=== PATIENT | male | born 1965 | race Caucasian/White ===

== ENCOUNTER 2020-10-25 19:42 | Inpatient (IN) | payer BC, SELFPAY ==
[2020-10-25] VITALS (16 sets, daily range): BP systolic 105–161; BP diastolic 58–91; PULSE 86–100; RESP 12–24; TEMP 36.4–36.7; O2SAT 89–94; BMI 29.8
--- NOTE | 2020-10-25 19:54 | XR_ITS ---
WS: [id number] PORTABLE CHEST HISTORY: sob COMPARISON: 09/08/2016 Lungs are clear and well expanded. No pleural effusion or pneumothorax. Cardiac size: Normal. Mediastinum/Aorta: Normal mediastinum. No osseous abnormality seen. XR/XR chest 1V portable [id number] IMPRESSION: Unremarkable portable chest.
--- NOTE | 2020-10-25 19:58 | ECG_ITS ---
[facility] Test Date: 2020-10-25 Pat Name: Jairon Taylor Department: Room: Gender: Male Inspector Government Property: : 1965 Requested By: Gissel Shirley Order Number: [id number] Key MD: Mani Davila M.D. Measurements Intervals [place] Rate: 94 P: 24 CA: 133 QRS: 15 QRSD: 113 T: 34 QT: 322 QTc: 405 Interpretive Statements SINUS RHYTHM MODERATE INTRAVENTRICULAR CONDUCTION DELAY [110+ ms QRS DURATION] NONSPECIFIC T-WAVE ABNORMALITY INTERPRETATION BASED ON A DEFAULT AGE OF 40 YEARS No previous ECG available for comparison Electronically Signed On 10-26-2020 22:24:27 DIGITAL ACCOUNT DIRECTOR by Mani Davila M.D. [email or web address]
--- NOTE | 2020-10-25 19:58 | W.ED.SOB ---
HPI - SOB/Dyspnea General: Chief Complaint: Shortness of Breath/Dyspnea Stated Complaint: trouble breathing Time Seen by Provider: 10/25/20 19:53 Source: patient Mode of arrival: ambulatory Limitations: no limitations History of Present Illness: HPI Narrative: 55-year-old male who has a long history of last day he has been having increasing shortness of breath and wheezing. He states he had little improvement with his vascular inhaler. He states he had no known sick contacts but was at a basketball game in [place] recently but he states he wore a mask. He denies any fever he has had a dry cough. He states he had chest pain as well that is a pressure type pain worse with his breathing. Denies any recent long trips. Denies any vomiting or diarrhea. MD elicited complaint: shortness of breath Associated symptoms: Reports chest pain; Deny abdominal pain, fever(s), nausea or vomiting Review of Systems Const: Denies: fever(s), chills, body aches or change in appetite Eyes: Denies: blurry vision or eye discomfort ENMT: Denies: throat pain or dental pain Card: Reports: chest pain Resp: Reports: dyspnea, non-productive cough and wheezing GI: Denies: abdominal pain, nausea, vomiting or diarrhea : Denies: dysuria Musc: Denies: neck pain or back pain Skin/Breast: Denies: rash Neuro: Denies: headache(s) Psych: Denies: depression Bob/Lymph: Denies: easy bruising All/Imm: Denies: urticaria Physical Exam Const: COMMON NORMALS: no acute distress, patient oriented x3 and healthy appearing HENMT: COMMON NORMALS: normocephalic and atraumatic HEAD & SCALP: normocephalic and atraumatic Eye: COMMON NORMALS: Equal, round and reactive pupils present and EOMs intact bilaterally PUPIL: Yes Equal, round and reactive pupils present Neck/C-Spine: COMMON NORMALS: full ROM and supple Chest: COMMONS NORMALS: normal inspection of the chest and normal palpation of entire chest wall Resp: COMMON NORMALS: No retractions and No use of accessory muscles EFFORT & INSPECTION: Yes tachypneic AUSCULTATION: wheezes Cardio: COMMON NORMALS: regular rate, regular rhythm and No murmurs present (Cardio) RATE: regular rate RHYTHM: regular rhythm GI: COMMON NORMALS: Normal to inspection, nondistended, normoactive bowel sounds present, Soft to palpation, non-tender and no masses PALPATION: Yes Soft to palpation Extremity: COMMON NORMALS: normal to inspection and full ROM Neuro: COMMON NORMALS: patient oriented x3, moves all extremities and no focal motor deficits Psych: COMMON NORMALS: mental status grossly normal, Normal thought process present and cooperative THOUGHT PROCESS: Normal thought process present Skin: COMMON NORMALS: no rashes or lesions noted and no wounds GENERAL SKIN EXAM: no rashes or lesions noted Course Vital Signs: Vital signs: Vital Signs Temperature 98.1 F 10/25/20 19:49 Pulse Rate 90 10/25/20 21:30 Respiratory Rate 14 10/25/20 21:30 Blood Pressure 111/77 10/25/20 21:30 Pulse Oximetry 92 10/25/20 21:30 MDM - SOB/Dyspnea MDM Narrative: Medical decision making narrative: Jairon presents here with asthma exacerbation. He continues to have wheezing and requiring oxygen even after multiple breathing treatments. He is currently on 2 L of oxygen. I spoke to the hospitalist will admit. Patient's Covid test is negative and his x-ray shows no signs of pneumonia. He has no signs of cardiac cause as his initial troponin was negative. Lab Data: Labs: Lab Results 10/25/20 10/25/20 10/25/20 Range/Units 20:00 20:08 20:08 WBC 13.7 H (4.0-10.0) 10^3/ uL RBC 5.24 (4.1-5.3) 10^6/u L Hgb 15.4 (11.7-16.6) g/dL Hct 46.7 (42.0-52.0) % MCV 89.1 (80-94) fL MCH 29.4 (28.0-34.0) pg MCHC 33.0 (30.0-36.0) g/dL RDW 11.9 L (12.1-15.1) % Plt Count 208 (130-400) 10^3/c mm MPV 9.4 (7.4-10.4) fL Neut % (Auto) 86.0 % Lymph % (Auto) 7.3 % [place] % (Auto) 4.9 % Eos % (Auto) 0.6 % Baso % (Auto) 0.9 % Neut # (Auto) 11.75 H (1.8-7.7) 10^3/u L Lymph # (Auto) 1.0 (0.8-4.8) 10^3/u L [place] # (Auto) 0.7 (0.2-0.9) 10^3/u L Eos # (Auto) 0.1 (0.0-0.8) 10^3/u L Baso # (Auto) 0.1 (0.0-0.1) 10^3/u L Nucleated RBC % (a uto) 0 % Nucleated RBCs # 0.0 /100WBC Sodium 137 (136-145) mmol/L Potassium 4.0 (3.5-5.1) mmol/L Chloride 100 (98-107) mmol/L Carbon Dioxide 25 (22-29) mmol/L Anion Gap 16.0 (5-19) BUN 19 (6-20) mg/dL Creatinine 0.9 (0.7-1.2) mg/dL GFR Calculation 87.3 L (90-130) mL/min Glucose 175 H (65-115) mg/dL Calculated Osmolal ity 291 (285-295) mOsm/k g Calcium 9.1 (8.5-10.5) mg/dL Total Bilirubin 0.3 (0.15-1.2) mg/dL AST 15 (0-40) U/L ALT 24 (0-41) U/L Alkaline Phosphata se 78 (40-130) IU/L Troponin T Baselin e (0-15) ng/L NT-Pro-B Natriuret Pep 71 (0-125) pg/mL Total Protein 7.3 (6.6-8.7) g/dL Albumin 4.2 (3.5-5.2) g/dL Globulin 3.1 (1.3-4.6) g/dL SARS-CoV-2 Ag (Rap id) Negative (Negative) 10/25/20 Range/Units 20:08 WBC (4.0-10.0) 10^3/ uL RBC (4.1-5.3) 10^6/u L Hgb (11.7-16.6) g/dL Hct (42.0-52.0) % MCV (80-94) fL MCH (28.0-34.0) pg MCHC (30.0-36.0) g/dL RDW (12.1-15.1) % Plt Count (130-400) 10^3/c mm MPV (7.4-10.4) fL Neut % (Auto) % Lymph % (Auto) % [place] % (Auto) % Eos % (Auto) % Baso % (Auto) % Neut # (Auto) (1.8-7.7) 10^3/u L Lymph # (Auto) (0.8-4.8) 10^3/u L [place] # (Auto) (0.2-0.9) 10^3/u L Eos # (Auto) (0.0-0.8) 10^3/u L Baso # (Auto) (0.0-0.1) 10^3/u L Nucleated RBC % (a uto) % Nucleated RBCs # /100WBC Sodium (136-145) mmol/L Potassium (3.5-5.1) mmol/L Chloride (98-107) mmol/L Carbon Dioxide (22-29) mmol/L Anion Gap (5-19) BUN (6-20) mg/dL Creatinine (0.7-1.2) mg/dL GFR Calculation (90-130) mL/min Glucose (65-115) mg/dL Calculated Osmolal ity (285-295) mOsm/k g Calcium (8.5-10.5) mg/dL Total Bilirubin (0.15-1.2) mg/dL AST (0-40) U/L ALT (0-41) U/L Alkaline Phosphata se (40-130) IU/L Troponin T Baselin e 7 (0-15) ng/L NT-Pro-B Natriuret Pep (0-125) pg/mL Total Protein (6.6-8.7) g/dL Albumin (3.5-5.2) g/dL Globulin (1.3-4.6) g/dL SARS-CoV-2 Ag (Rap id) (Negative) Imaging Data^: CXR: Attestation: I personally reviewed and interpreted this imaging study as follows: My impression: no acute abnormality EKG Data^: EKG 1: Attestation: I personally reviewed and interpreted this EKG as follows: EKG Interpretation Date: 10/25/20 EKG interpretation time: 20:01 Interpretation: nsr hr [address] or t wave abnormalities qrs 113 qtc 374 Discharge Plan Discharge Patient Disposition: Admitted As Inpatient Clinical Impression: Asthma with exacerbation Qualifiers: Asthma severity: unspecified severity Asthma persistence: unspecified Qualified Code(s): J45.901 - Unspecified asthma with (acute) exacerbation Condition: Stable Coding Level of Care Code ED Debt And Budget Counselor for g Fwd Exam Comprehensive
[2020-10-25] MEDS: albuterol 8 gm MDI 2 PUFF INHALATION (20:05)
[2020-10-25 20:19] LABS: Basophils # 0.1 10^3/uL (0.0-0.1); Basophils % 0.9 %; Eosinophils # 0.1 10^3/uL (0.0-0.8); Eosinophils % 0.6 %; Hematocrit 46.7 % (42.0-52.0); Hemoglobin 15.4 g/dL (11.7-16.6); Lymphocytes % 7.3 %; Mean Corpuscular Hemoglobin 29.4 pg (28.0-34.0); Mean Corpuscular Volume 89.1 fL (80-94); Mean Platelet Volume 9.4 fL (7.4-10.4); Monocytes # 0.7 10^3/uL (0.2-0.9); Monocytes % 4.9 %; Neutrophils # 11.75 10^3/uL (1.8-7.7); Nucleated Red Blood Cells % 0 %; Platelet Count 208 10^3/cmm (130-400); Red Blood Count 5.24 10^6/uL (4.1-5.3); Red Cell Distribution Width 11.9 % (12.1-15.1); White Blood Count 13.7 10^3/uL (4.0-10.0)
[2020-10-25 20:53] LABS: Troponin(5th) Baseline 7 ng/L (0-15)
[2020-10-25 21:00] LABS: SARS Covid-2 Antigen Negative (Negative)
[2020-10-25 21:10] LABS: Alanine Aminotransferase 24 U/L (0-41); Albumin Level 4.2 g/dL (3.5-5.2); Alkaline Phosphatase 78 IU/L (40-130); Aspartate Amino Transferase 15 U/L (0-40); Blood Urea Nitrogen 19 mg/dL (6-20); Calcium 9.1 mg/dL (8.5-10.5); Carbon Dioxide 25 mmol/L (22-29); Chloride 100 mmol/L (98-107); Globulin 3.1 g/dL (1.3-4.6); Glomerular Filtration Rate 87.3 mL/min (90-130); Glucose 175 mg/dL (65-115); NT Pro B Type Natriuretic Pept 71 pg/mL (0-125); Osmolality Calculated 291 mOsm/kg (285-295); Sodium 137 mmol/L (136-145); Total Bilirubin 0.3 mg/dL (0.15-1.2); Total Protein 7.3 g/dL (6.6-8.7)
[2020-10-25] MEDS: ipratropium-albuterol 3 mL Neb INHALATION (21:25)
[2020-10-25] MEDS: albuterol 8 gm MDI 4 PUFF INHALATION (21:25)
--- NOTE | 2020-10-25 22:07 | PM.HP ---
Providers/Chief Complaint Admitting Physician: Lionel Nunes MD Chief Complaint: trouble breathing History of Present Illness Jairon Taylor is a 55 year old male with no significant past medical history other than asthma came here with shortness of breath. Patient is stating that his symptoms started in last 48 hours which she is attributing to sinusitis, today he was just not able to catch his breath, he tried to use his rescue inhaler which did not relieve his symptoms hence decided to come to the hospital for further evaluation. He is denying fever, chest pain, nausea, vomiting, diarrhea, myalgias, exposure to sick contacts. Diagnostics in the ER revealed asthma exacerbation, his symptoms did not improve much after 3 albuterol treatments, he was still coughing was experiencing audible wheezing hence decision was made to observe him overnight. He does not have any nebulizer treatment at home. No signs of sepsis or pneumonia. Covid antigen negative,. His heart rate was high because of albuterol treatment. Eosinophils not extremely high. Review of Systems Const: Reports: chills Eyes: Denies: change in vision ENMT: Reports: throat pain, nasal congestion and nasal obstruction Card: Denies: chest pain Resp: Reports: dyspnea and non-productive cough GI: Denies: abdominal pain : Denies: flank pain Musc: Denies: neck pain Skin/Breast: Denies: rash Neuro: Denies: headache(s) Psych: Denies: anxiety Endo: Denies: polyuria Bob/Lymph: Denies: easy bruising All/Imm: Denies: urticaria Medications/Allergies Home Medications Medication Instructions Recorded Confirmed Last Taken Type Oscillococcinum 1 packet PO PRN 10/25/20 10/25/20 10/25/20 16:00 History acetaminophen [Tylenol Extra 1,000 mg PO PRN 10/25/20 10/25/20 10/25/20 History Strength] albuterol sulfate 2.5 mg INHALATION Q4H PRN 10/25/20 10/25/20 10/25/20 History albuterol sulfate [ProAir HFA] 2 puff INHALATION Q4H PRN 10/25/20 10/25/20 10/25/20 History cholecalciferol (vitamin D3) 3,000 unit PO DAILY 10/25/20 10/25/20 10/25/20 History [Vitamin D3] clindamycin HCl 150 - 300 mg PO TID 10/25/20 10/25/20 10/25/20 History 2 caps cyanocobalamin (vitamin B-12) 100 mcg PO DAILY 10/25/20 10/25/20 10/25/20 History [Vitamin B-12] [id number]-PO-acetaminophen See Rx Instructions .ROUTE .COMPLEX 10/25/20 10/25/20 10/25/20 History [NyQuil] ginseng 100 mg PO DAILY 10/25/20 10/25/20 10/25/20 History ibuprofen 400 - 800 mg PO PRN 10/25/20 10/25/20 10/25/20 16:00 History zinc 50 mg PO DAILY 10/25/20 10/25/20 10/25/20 History Allergies Allergy/AdvReac Type Severity Reaction Status Date / Time No Known Allergies Allergy Unverified 10/25/20 20:35 PFSH Acute PFSH: Medical History (Updated 10/25/20 @ 23:10 by Lionel Nunes MD) Asthma Surgical History (Updated 10/25/20 @ 23:10 by Lionel Nunes MD) Hx of inguinal hernia surgery Family History (Updated 10/25/20 @ 23:10 by Lionel Nunes MD) Mother Cancer Social History (Updated 10/25/20 @ 23:11 by Lionel Nunes MD) Smoking and tobacco status: never smoked Alcohol intake: never Substance/Drug Use: never Household members: spouse Housing: House Vitals/I&O/Wt Last Vital Signs Temp 98.1 F 10/25/20 22:03 Pulse 90 10/25/20 22:03 Resp 15 10/25/20 22:03 BP 111/77 10/25/20 22:03 Pulse Ox 93 10/25/20 22:03 Weight last 48 hrs Weight 99.79 kg Physical Exam Narrative: EXAM NARRATIVE: Middle-age male currently saturating well on room air Appears well-hydrated, well-built Overweight Has audible wheezing S1, S2 sinus rhythm heart rate in 70s to 80s no murmur appreciated No signs of heart failure EOMI, PERRLA No neurological deficit Abdomen soft nontender bowel sound present Bilateral monophasic wheezing noted, no acute respiratory distress, dry cough noted Lower extremity no edema gangrene ulcer Appropriate mood and affect He was eating a sandwich when I entered the room, no conversational dyspnea, no cyanosis Data : 10/25/20 20:08 10/25/20 20:08 A&P Assessment and plan (1) Asthma with exacerbation: Asthma exacerbation secondary to sinusitis DuoNeb, IV steroids, will start Augmentin regimen No acute respiratory distress at the time of my evaluation Covid antigen negative, no active respiratory distress, will obtain blood gas Does not smoke however chews tobacco His symptoms are rare once every 3 to 4 months recommended rescue inhalers at home We will request D-dimer currently he is saturating well on room air, I turned off his nasal cannula oxygen supplementation, no hypoxia noted, however has audible wheezing His eosinophil cell count is not significantly high I do not suspect this was secondary to allergen allergy reaction Status: Acute Qualifiers: Asthma persistence: unspecified Asthma severity: unspecified severity Qualified Code(s): J45.901 - Unspecified asthma with (acute) exacerbation Additional A&P Information DVT prophylaxis Lovenox Cardiac diet Full code Attestations Medical Necessity Statement*: Anticipating discharge in less than 48 hours continued overnight monitoring for asthma exacerbation Time Spent in Patient Care: (>than 50% of time spent in counselling and/or direct pt care on unit). 50mins Coding Level of Care Code Acute Manager Laboratory for [facility] Diagnoses Asthma with exacerbation J45.901 Asthma persistence: unspecified Asthma severity: unspecified severity
--- NOTE | 2020-10-25 22:18 | PC.NURSE ---
Holding patient down here until room is ready. Room is being cleaned.
[2020-10-26] VITALS (19 sets, daily range): BP systolic 98–142; BP diastolic 71–82; PULSE 107–126; RESP 16–23; TEMP 36.4–37; O2SAT 91–95
[2020-10-26] MEDS: ipratropium-albuterol 3 mL Neb INHALATION ×7 (01:00→23:39)
[2020-10-26] MEDS: nicotine 21 mg Patch 1 PATCH TRANSDERMA ×2 (04:15→08:07)
[2020-10-26 04:40] LABS: ABG PCO2 35.3 mmHg (35-45); Blood Gas Sample Site Brachial, right; Blood Gas Sample Type Arterial
[2020-10-26 06:06] LABS: Basophils % 0.2 %; Hematocrit 48.1 % (42.0-52.0); Hemoglobin 15.4 g/dL (11.7-16.6); Lymphocytes # 0.9 10^3/uL (0.8-4.8); Mean Corpuscular Hemoglobin 29.5 pg (28.0-34.0); Mean Corpuscular Volume 92.1 fL (80-94); Mean Platelet Volume 9.9 fL (7.4-10.4); Monocytes # 0.1 10^3/uL (0.2-0.9); Monocytes % 0.5 %; Neutrophils # 12.13 10^3/uL (1.8-7.7); Neutrophils % 91.8 %; Nucleated Red Blood Cells % 0 %; Platelet Count 207 10^3/cmm (130-400); Red Blood Count 5.22 10^6/uL (4.1-5.3); Red Cell Distribution Width 12.1 % (12.1-15.1); White Blood Count 13.2 10^3/uL (4.0-10.0)
[2020-10-26 06:35] LABS: Blood Urea Nitrogen 17 mg/dL (6-20); Calcium 9.4 mg/dL (8.5-10.5); Carbon Dioxide 20 mmol/L (22-29); Chloride 99 mmol/L (98-107); Glucose 144 mg/dL (65-115); Osmolality Calculated 284 mOsm/kg (285-295); Sodium 135 mmol/L (136-145)
[2020-10-26 06:37] LABS: Anion Gap 20.1 (5-19); Potassium 4.1 mmol/L (3.5-5.1)
[2020-10-26] MEDS: amoxicillin-clav 875-125 mg Tablet 1 TAB PO ×2 (08:06→17:36)
--- NOTE | 2020-10-26 08:06 | PC.RESP ---
Pt requiring 3lpm nc, and has diffuse wheezing, unable to speak in full sentences. Would it be possible to add steroids?
[2020-10-26 09:15] LABS: Arterial Blood Gas Hematocrit 33.1 % (42-52); Base Excess ABG 11.4 mmol/L (-2.0-2.0); Blood Gas Allen Test Pos; Blood Gas Operator Identificat Anonymous; HCO3 ABG 38.3 mmol/L (22-26)
[2020-10-26] MEDS: benzonatate 100 mg Capsule 200 MG PO ×2 (09:26→17:37)
[2020-10-26] MEDS: acetaminophen 325 mg Tablet 650 MG PO ×3 (09:26→23:39)
--- NOTE | 2020-10-26 09:27 | PC.NURSE ---
patient reports headache and throat irritation from frequent cough, Dr. Mccarty notified, new orders received for PRN Tylenol and tessalon pearls given per doctors orders see MAR for further details. Dr. Mccarty at bedside and verbalized will increase steriod IV and start mucinex, updated verbalized understanding.
--- NOTE | 2020-10-26 09:41 | PM.PN ---
Subjective Subjective: Interval history: This morning he still coughing quite a bit. He is also having headache. Overall he is feeling a little better, but not back to his usual self. Is also continue to require oxygen wears normally does not use any beyond room air. Abdomen is sore from coughing. Vitals/I&O/Wt Last Vital Signs Temp 97.6 F 10/26/20 07:57 Pulse 124 H 10/26/20 07:57 Resp 20 H 10/26/20 07:57 BP 130/74 10/26/20 07:57 Pulse Ox 92 10/26/20 07:57 10/25/20 10/26/20 10/26/20 22:59 06:59 14:59 Intake Total 250 / 250 360 / 360 Balance 250 / 250 360 / 360 Weight last 48 hrs Weight 99.79 kg Physical Exam Const: COMMON NORMALS: no acute distress and patient oriented x3 HENMT: COMMON NORMALS: oropharynx normal Neck/C-Spine: COMMON NORMALS: no JVD Resp: COMMON NORMALS: normal respiratory effort AUSCULTATION: wheezes Cardio: COMMON NORMALS: no JVD, regular rhythm, S1 normal heart sound present, S2 normal heart sound present and No murmurs present (Cardio) RHYTHM: regular rhythm HEART SOUNDS: S1 normal heart sound present and S2 normal heart sound present GI: COMMON NORMALS: Normal to inspection, nondistended, normoactive bowel sounds present, Soft to palpation and non-tender PALPATION: Yes Soft to palpation Extremity: COMMON NORMALS: no joint enlargement and no pedal edema Neuro: COMMON NORMALS: patient oriented x3 and moves all extremities Skin: COMMON NORMALS: no rashes or lesions noted GENERAL SKIN EXAM: no rashes or lesions noted Data : 10/26/20 04:28 10/26/20 04:28 A&P Assessment and plan (1) Asthma with exacerbation: Persistent severe asthma exacerbation with hypoxia, continues to require 3 L oxygen by nasal cannula whereas normally does not use supplemental oxygen. Persistent wheezing on exam despite IV steroids. Will increase Solu-Medrol dose to 40 mg every 6h. Discussed briefly with our director of estate. Continue Solu-Medrol 40 mg every 6 for today. Consider switching to every 8 hours tomorrow. Will give 2 g magnesium sulfate. He feels like he has some phlegm building up but cannot cough it up. Add Mucinex, flutter valve. He is mild leukocytosis, but otherwise is afebrile, without evidence of pneumonia on chest x-ray. Recheck ABG in the morning or if any sign of worsening. Status: Acute Qualifiers: Asthma persistence: unspecified Asthma severity: unspecified severity Qualified Code(s): J45.901 - Unspecified asthma with (acute) exacerbation Additional A&P Information DVT prophylaxis Lovenox Cardiac diet Full code Attestations Medical Necessity Statement*: Admission of over 2 midnights is needed for assessment management of severe asthma exacerbation, hypoxia. Coding Level of Care Code Acute Clinical Document Improvement Educator for Chg Fwd Exam Comprehensive Diagnoses Asthma with exacerbation J45.901 Asthma persistence: unspecified Asthma severity: unspecified severity
[2020-10-26] MEDS: guaiFENesin 600 mg Tablet 1200 MG PO ×2 (10:07→17:36)
[2020-10-26] MEDS: magnesium sulfate premix 2 GM/50 ML PIGGYBACK IV (11:18)
--- NOTE | 2020-10-26 13:28 | PC.NURSE ---
Patient found on room air, oxygen saturation 88-89%, provided longer oxygen tubing and instructed patient has to wear oxygen everywhere around room and in chair and to bathroom, verbalized understanding, oxygen saturation with 3L NC was 91-95%.
[2020-10-26 17:44] LABS: D Dimer 0.33 ug/mIFEU (0-0.59)
[2020-10-26] MEDS: calcium carbonate 500 mg Chew Tablet PO (21:10)
[2020-10-27] VITALS (15 sets, daily range): BP systolic 125–151; BP diastolic 36–90; PULSE 100–110; RESP 18–22; TEMP 36.4–36.9; O2SAT 91–95
[2020-10-27] MEDS: ipratropium-albuterol 3 mL Neb INHALATION ×5 (03:08→20:21)
[2020-10-27 05:34] LABS: ABG PCO2 36.9 mmHg (35-45); ABG PH Result 7.42 (7.35-7.45); Arterial Blood Gas Hematocrit 46.4 % (42-52); Base Excess ABG -0.3 mmol/L (-2.0-2.0); Blood Gas Sample Site Brachial, right; Blood Gas Sample Type Arterial; HCO3 ABG 23.9 mmol/L (22-26); Oxygen Device NC; PO2 ABG 78.9 mmHg (80.0-100.0)
[2020-10-27 05:41] LABS: Basophils % 0.2 %; Hematocrit 43.9 % (42.0-52.0); Hemoglobin 14.2 g/dL (11.7-16.6); Lymphocytes # 1.5 10^3/uL (0.8-4.8); Lymphocytes % 7.7 %; Mean Corpuscular HGB Conc 32.3 g/dL (30.0-36.0); Mean Corpuscular Hemoglobin 29.5 pg (28.0-34.0); Mean Corpuscular Volume 91.1 fL (80-94); Mean Platelet Volume 9.8 fL (7.4-10.4); Monocytes # 0.7 10^3/uL (0.2-0.9); Monocytes % 3.6 %; Neutrophils # 17.01 10^3/uL (1.8-7.7); Neutrophils % 87.9 %; Nucleated Red Blood Cells % 0 %; Platelet Count 232 10^3/cmm (130-400); Red Blood Count 4.82 10^6/uL (4.1-5.3); Red Cell Distribution Width 12.4 % (12.1-15.1); White Blood Count 19.4 10^3/uL (4.0-10.0)
[2020-10-27 06:07] LABS: Anion Gap 18.6 (5-19); Blood Urea Nitrogen 26 mg/dL (6-20); Calcium 9.3 mg/dL (8.5-10.5); Carbon Dioxide 24 mmol/L (22-29); Chloride 100 mmol/L (98-107); Glucose 155 mg/dL (65-115); Osmolality Calculated 294 mOsm/kg (285-295); Potassium 4.6 mmol/L (3.5-5.1); Sodium 138 mmol/L (136-145)
[2020-10-27] MEDS: calcium carbonate 500 mg Chew Tablet PO ×4 (08:36→21:36)
[2020-10-27] MEDS: guaiFENesin 600 mg Tablet 1200 MG PO ×2 (08:36→17:36)
[2020-10-27] MEDS: amoxicillin-clav 875-125 mg Tablet 1 TAB PO (08:36)
[2020-10-27] MEDS: nicotine 21 mg Patch 1 PATCH TRANSDERMA (08:36)
--- NOTE | 2020-10-27 09:42 | PC.CHAP ---
Pastoral Care Encounter/Spiritual Assessment Type of Contact [] Declined portrait studio photographer visit [] Patient/Family/Request visit [] Outpatient visit [] Follow-up visit [] Physician referral [] Code/Alert [] Routine visit [] Staff referral [] Actively dying [] Patient sleeping [] Family support [] [] Out of room [] Palliative care [] [] Receiving care in room [] Pre-surgical visit [] Trauma [] Long length of stay [] ICU visit [] Other: Relational/Emotional Strength [x] Patient feels connected with others/family/visitors/staff [] Distress [] Loneliness/isolation [] Abandonment Spirituality of Patient [x] Person of Ekaterina [x] Attends Islam of their Ekaterina [] Believes in Prayer [] Reads Bible or Quaker materials [] There are Spiritual issues to be addressed Farmer [employer] Interventions [x] Prayer [x] Active listening [] Non-anxious presence [] Spiritual/emotional support [] Crisis/trauma care [] Spiritual counseling [] Bereavement support [] Provided bereavement packet [] Provided Bible/devotional materials [] Provided toy/stuffed animal, coloring book to patient or family member [] Provided Communion [] Anointing/[place] [] Salvation [x] Completed spiritual assessment [] Other: Impact on Illness or Injury [] Angry [] Fearful [] Anxious [] Often cries [] Exhaustion [] Unable to work [] Unable to attend zoroastrian [] Unable to walk/stand [] Unable to read [] Unable to drive [] Unable to eat/drink [] Unable to sleep [] Unable to be with family [] Patient intubated [] Other: Summary ready to go home felling much better Time spent with patient 10 min
[2020-10-27] MEDS: acetaminophen 325 mg Tablet 650 MG PO ×2 (10:23→19:29)
[2020-10-27 11:10] LABS: Procalcitonin 0.03 ng/mL (0-0.5)
--- NOTE | 2020-10-27 16:32 | PM.PN ---
Subjective Subjective: Interval history: The patient reports improved wheezes and shortness of breath. Reports cough productive with yellow mucus. No hemoptysis. No chest pain. No fever or chills. Medications: Reviewed: Yes Medication Review Details: Generic Name Dose Route Start Last Admin Trade Name Freq PRN Reason Stop Dose Admin Acetaminophen 650 mg 10/26/20 09:04 10/27/20 10:23 Acetaminophen 32 5 Mg Tablet PO 650 mg Q6H PRN Administration MILD PAIN Albuterol/Ipratrop ium 3 ml 10/26/20 04:00 10/27/20 15:34 Ipratropium-Albu terol 3 Ml Neb INHALATION 3 ml Q4H.RESPIRATORY S CH Administration Benzonatate 200 mg 10/26/20 09:03 10/26/20 17:37 Benzonatate 100 Mg Capsule PO 200 mg TID PRN Administration COUGH Calcium Carbonate 500 mg 10/26/20 20:57 10/27/20 14:07 Calcium Carbonat e 500 Mg Chew Tabl et PO 500 mg Q4H PRN Administration INDIGESTION Enoxaparin Sodium 40 mg 10/25/20 23:25 10/26/20 23:39 Enoxaparin 40 Mg /0.4 Ml Syringe SUBCUT Not Given Q24H ROSITA Guaifenesin 1,200 mg 10/26/20 09:30 10/27/20 08:36 Guaifenesin 600 Mg Tablet PO 1,200 mg BID ROSITA Administration Nicotine 1 patch 10/26/20 09:00 10/27/20 08:36 Nicotine 21 Mg P atch TRANSDERMA 1 patch DAILY ROSITA Administration Nicotine 1 patch 10/26/20 04:00 10/27/20 08:39 Nicotine 21 Mg P atch TRANSDERMA Not Given DAILY ROSITA Vitals/I&O/Wt Last Vital Signs Temp 97.6 F 10/27/20 15:40 Pulse 107 H 10/27/20 15:40 Resp 18 10/27/20 15:40 BP 125/82 10/27/20 15:40 Pulse Ox 91 10/27/20 15:40 10/27/20 10/27/20 10/27/20 06:59 14:59 22:59 Intake Total 840 / 840 Output Total 400 / 500 Balance -400 / 100 840 / 840 Weight last 48 hrs Weight 99.79 kg Physical Exam Narrative: EXAM NARRATIVE: The patient is awake alert and oriented x4. No acute distress. Mood and affect are appropriate. Responses are adequate. Skin is warm and dry. Moist mucous nares. Neck supple. No JVD Lungs. Bilateral mild diffuse wheezes and crackles. No respiratory distress. Heart S1, S2, regular Abdomen soft, nontender, bowel sounds are present Extremities no edema cyanosis or calf tenderness bilaterally Data : 10/27/20 04:28 10/27/20 04:28 A&P Additional A&P Information Acute asthma exacerbation. Probable pneumonia. Seems to be improving now. Will decrease Solu-Medrol dose. Will adjust antibiotics. We will stop Augmentin and start him on Omnicef and doxycycline for atypical coverage. Will reassess his oxygen demand tomorrow and prepare him for possible discharge Friday. DVT prophylaxis. Lovenox. The plan of care was discussed with the patient and multidisciplinary team. They verbalized understanding and agreement. Attestations Medical Necessity Statement*: Still requires inpatient hospitalization due to need for aggressive respiratory treatments and IV steroids. Coding Level of Care Code Acute Employee Benefits Administrator for [facility]
[2020-10-27] MEDS: doxycycline 100 mg Tablet PO (17:36)
[2020-10-27] MEDS: benzonatate 100 mg Capsule 200 MG PO (17:39)
[2020-10-27] MEDS: cefdinir 300 MG CAPSULE PO (17:39)
[2020-10-28] VITALS (10 sets, daily range): BP systolic 129–150; BP diastolic 82–88; PULSE 89–105; RESP 17–18; TEMP 36.7–36.9; O2SAT 92–94
[2020-10-28] MEDS: ipratropium-albuterol 3 mL Neb INHALATION ×3 (00:20→12:45)
[2020-10-28 05:35] LABS: Basophils % 0.1 %; Hematocrit 43.8 % (42.0-52.0); Hemoglobin 14.1 g/dL (11.7-16.6); Lymphocytes # 2.2 10^3/uL (0.8-4.8); Lymphocytes % 11.8 %; Mean Corpuscular HGB Conc 32.2 g/dL (30.0-36.0); Mean Corpuscular Hemoglobin 29.1 pg (28.0-34.0); Mean Corpuscular Volume 90.5 fL (80-94); Mean Platelet Volume 9.9 fL (7.4-10.4); Monocytes % 5.1 %; Neutrophils # 15.66 10^3/uL (1.8-7.7); Neutrophils % 82.5 %; Nucleated Red Blood Cells % 0 %; Platelet Count 242 10^3/cmm (130-400); Red Blood Count 4.84 10^6/uL (4.1-5.3); Red Cell Distribution Width 12.4 % (12.1-15.1)
[2020-10-28 06:01] LABS: Albumin Level 4.1 g/dL (3.5-5.2); Anion Gap 14.4 (5-19); Blood Urea Nitrogen 25 mg/dL (6-20); Calcium 9.5 mg/dL (8.5-10.5); Carbon Dioxide 27 mmol/L (22-29); Chloride 101 mmol/L (98-107); Creatinine Clr Calc Pharmacy 144.1267; Glomerular Filtration Rate 116.7 mL/min (90-130); Glucose 119 mg/dL (65-115); Magnesium 2.2 mg/dL (1.7-2.3); Osmolality Calculated 292 mOsm/kg (285-295); Phosphorus 3.4 mg/dL (2.5-4.5); Potassium 4.4 mmol/L (3.5-5.1); Sodium 138 mmol/L (136-145)
[2020-10-28] MEDS: nicotine 21 mg Patch 1 PATCH TRANSDERMA (08:48)
[2020-10-28] MEDS: doxycycline 100 mg Tablet PO (08:49)
[2020-10-28] MEDS: guaiFENesin 600 mg Tablet 1200 MG PO (08:49)
[2020-10-28] MEDS: cefdinir 300 MG CAPSULE PO (08:49)
--- NOTE | 2020-10-28 12:30 | PM.DCS ---
Discharge Providers Date of Admission: 10/26/20 09:30 Date of Discharge: October 28, 2020 Attending Provider at Admission: Lionel Nunes MD Attending Provider at Discharge: Jair Hensley Diagnoses at Discharge Discharge Diagnosis (1) Asthma with exacerbation: Status: Acute Qualifiers: Asthma persistence: unspecified Asthma severity: unspecified severity Qualified Code(s): J45.901 - Unspecified asthma with (acute) exacerbation Reason for Visit Reason for Visit: trouble breathing Hospital Course Hospital Course Discharge diagnoses and problem list Acute hypoxic respiratory failure secondary to severe asthma exacerbation. Currently resolved. Off oxygen. Symptoms have improved significantly. He is eager to go home. He is switched to p.o. steroids at discharge. He is instructed to come back to emergency room if he develops any worsening shortness of breath, fever or chills, worsening cough, weakness dizziness or lightheadedness, or any other new complaints. He verbalized understanding and agreement. Otherwise he will follow-up with his primary care physician who will take care of the management of asthma. He might benefit from pulmonary medicine evaluation. However the patient wants me to defer this to his primary care physician. Physical Exam Narrative: EXAM NARRATIVE: The patient is awake alert and oriented x4. No acute distress. Mood and affect are appropriate. Responses are adequate. Skin is warm and dry. Moist mucous nares. Neck supple. No JVD Lungs. Significantly improved bilateral diffuse wheezes. No respiratory distress. Heart S1, S2, regular Abdomen soft, nontender, bowel sounds are present Extremities no edema cyanosis or calf tenderness bilaterally Discharge Data Data Completed and Pending: Completed Studies During Hospitalization Category Date Time Status XR chest 1V froilan ble [id number] Urgent Exams 10/25/20 19:54 Completed Pending at discharge Category Date Time Status Basic Metabolic P mariela AM LABS Lab 10/29/20 04:00 Ordered Complete Blood Co unt w/Auto AM LABS Lab 10/29/20 04:00 Ordered Labs from last 24 hours 10/28/20 10/28/20 04:22 04:22 WBC 19.0 H RBC 4.84 Hgb 14.1 Hct 43.8 MCV 90.5 MCH 29.1 MCHC 32.2 RDW 12.4 Plt Count 242 MPV 9.9 Neut % (Auto) 82.5 Lymph % (Auto) 11.8 [place] % (Auto) 5.1 Eos % (Auto) 0.0 Baso % (Auto) 0.1 Neut # (Auto) 15.66 H Lymph # (Auto) 2.2 [place] # (Auto) 1.0 H Eos # (Auto) 0.0 Baso # (Auto) 0.0 Nucleated RBC % (a uto) 0 Nucleated RBCs # 0.0 Sodium 138 Potassium 4.4 Chloride 101 Carbon Dioxide 27 Anion Gap 14.4 BUN 25 H Creatinine 0.7 GFR Calculation 116.7 Glucose 119 H Calculated Osmolal ity 292 Calcium 9.5 Phosphorus 3.4 Magnesium 2.2 Albumin 4.1 Vitals: Last Vital Signs Temp 98.4 F 10/28/20 07:00 Pulse 92 10/28/20 07:46 Resp 17 10/28/20 07:36 BP 136/87 10/28/20 07:00 Pulse Ox 94 10/28/20 07:36 Discharge Plan Discharge Patient Disposition: Home Condition: Stable Prescriptions: New acetaminophen 325 mg Tablet 650 mg PO Q6H PRN (Reason: Mild Pain) Qty: 20 RF: 0 benzonatate 100 mg Capsule 200 mg PO TID PRN (Reason: Cough) Qty: 20 RF: 0 cefdinir 300 mg Capsule 300 mg PO BID Qty: 8 RF: 0 doxycycline monohydrate 100 mg Tablet 100 mg PO BID Qty: 8 RF: 0 prednisone 20 mg tablet 40 mg PO DAILY 10 Days Qty: 10 RF: 0 Advair Diskus 250-50 mcg/dose blister with device 1 inh inhalation BID Qty: 1 RF: 0 Continued ginseng 100 mg Capsule 100 mg PO DAILY RF: 0 Vitamin B-12 100 mcg Tablet 100 mcg PO DAILY RF: 0 zinc 50 mg Tablet 50 mg PO DAILY RF: 0 Vitamin D3 25 mcg (1,000 unit) Capsule 3,000 unit PO DAILY RF: 0 albuterol sulfate 2.5 mg /3 mL (0.083 %) Solution For Nebulization 2.5 mg INHALATION Q4H PRN (Reason: Shortness Of Breath) Qty: 60 RF: 0 ProAir HFA 90 mcg/actuation Hfa Aerosol Inhaler 2 puff INHALATION Q4H PRN (Reason: Shortness Of Breath) Qty: 1 RF: 0 Held Oscillococcinum 1 packet PO PRN RF: 0 Hold Instructions: Resume on 11/13/20. Ask your doctor about this medication Discontinued NyQuil 7.5-60-30-1,000 mg/30 mL Liquid See Rx Instructions .ROUTE .COMPLEX RF: 0 acetaminophen [Tylenol Extra Strength] 500 mg Tablet 1,000 mg PO PRN RF: 0 ibuprofen 200 mg Tablet 400 - 800 mg PO PRN RF: 0 clindamycin HCl 150 mg Capsule 150 - 300 mg PO TID RF: 0 Discharge Orders: Discharge Order (Routine); Ordered 10/28/20 Ordered By: Jair Hensley Other Ambulatory Orders: Complete Blood Count w/Auto (Routine) Timeframe: 1 Week Location: Determined by Patient Ordered By: Jair Hensley Discharge Diet: Regular Discharge Activity: Resume usual activity Patient Instructions: Asthma Exacerbation - Adult, How to Stop Smoking (DC), Bronchospasm (DC) Activity Restrictions/Additional Instructions: Please follow-up with your primary care physician within 1 week. Please ask your primary care physician to recheck your blood count. Your white blood cell count was elevated. To make sure that the numbers normalized after completion of treatments. Discharge Attestations Time Spent in Discharge Care*: less than 30 min Quality Metrics Clinical Quality Measures During this hospital stay, did patient experience: None Coding Level of Care Code Acute [employer] Specialist for Timo Jewell Diagnoses Asthma with exacerbation J45.901 Asthma persistence: unspecified Asthma severity: unspecified severity
--- NOTE | 2020-10-28 13:31 | PC.NURSE ---
Discharge instructions given, voiced full understanding. IV Dc'd cath intact bleeding controlled with 2x2 and coban. Pt to main entrance via wheelchair to private vehicle with zero difficulty
== END 2020-10-28 13:31 | disposition home or self-care (01) | DRG 202 ==
LOC: ER 21:56 → MEDSURG 10-26 04:50
PROVIDERS: Internal Medicine; Admitting Provider Internal Medicine; Emergency Provider Emergency Medicine; Visit Provider Internal Medicine
DX: J45.51 Severe persistent asthma with (acute) exacerbation (principal); J96.01 Acute respiratory failure with hypoxia; J32.9 Chronic sinusitis, unspecified; Z79.51 Long term (current) use of inhaled steroids
CPT/HCPCS: 12345; 36415; 36600; 71045; 80048; 80053; 80069; 82803; 83735; 83880; 84145; 84484; 85025; 85378; 87426; 93005; 94640; 96375; 99283; G0378; J2920; J2930; J3475; J3535; J7611

== ENCOUNTER 2024-01-05 12:58 | Outpatient (CLI) | payer BC, SELFPAY ==
--- NOTE | 2024-01-05 13:06 | CT_ITS ---
WS: [id number] LDCT LUNG CANCER SCREENING HISTORY: NICOTINE DEPENDENCE,CIGARETTES TECHNIQUE: Axial imaging performed from the apices to 1 cm below the costophrenic angles. Coronal and sagittal reformats are submitted with axial MIP series. All CT scans at [facility] use at least one of these dose optimization techniques: automated exposure control; mA and/or kV adjustment per patient size (includes targeted exams where dose is matched to clinical indication); or iterativ e reconstruction. DLP: 96.91 mGy.cm DIvol: Mean CTDIvol: 2.10 (mGy) COMPARISON: None available. Diagnostic quality: Satisfactory Lungs: Hyperinflated lungs. No pulmonary mass or nodule is identified. There is a subtle area of mini mal groundglass attenuation LEFT upper lobe, image 103 of series 4. This can be reevaluated in 1 year . No endobronchial lesions. Heart: Normal size heart with no pericardial effusion.. Other findings: No mediastinal or hilar adenopathy. Minimal atherosclerosis aorta. There are few kam gn calcified central lymph nodes. Small hiatal hernia. Splenic granulomata. IMPRESSION: CT/CT lung screening [id number] LUNG-RADS: 2-Benign Appearance or Behavior FOLLOW UP: 12 Month: Continue annual screening with LDCT OTHER FINDINGS (S MODIFIER): None.
== END 2024-01-05 12:59 | disposition home or self-care (01) ==
LOC: RAD 12:59
PROVIDERS: Visit Provider Electrodiagnostic Medicine
DX: Z12.2 Encounter for screening for malignant neoplasm of respiratory organs (principal); F17.210 Nicotine dependence, cigarettes, uncomplicated; R91.8 Other nonspecific abnormal finding of lung field
CPT/HCPCS: 71271